=== PATIENT | female | born 1975 | race Caucasian/White ===

== ENCOUNTER 2017-12-15 19:58 | Emergency (ER) | payer OTHER ==
--- NOTE | 2017-12-15 20:49 | EDM.PDOC ---
ED HPI GENERAL MEDICAL PROBLEM - General Chief Complaint: Lower Extremity Injury/Pain Stated Complaint: RT ANKLE INJURY Time Seen by Provider: 12/15/17 20:35 Source of Information: Reports: Patient, RN History Limitations: Reports: No Limitations - History of Present Illness INITIAL COMMENTS - FREE TEXT/NARRATIVE: 42 yo female twisted R ankle this morning. Later not able to bear weight. Pain is not bad when sitting. No self tx. Onset: Today Onset Date: 12/15/17 Onset Time: 10:00 Duration: Hour(s):, Constant Location: Reports: Lower Extremity, Right Quality: Reports: Ache (at rest), Sharp (with weight bearing) Severity: Moderate Improves with: Reports: Rest Worsens with: Reports: Movement Context: Reports: Trauma Associated Symptoms: Reports: No Other Symptoms Treatments [employer]: Reports: Other (see below) (none) - Related Data Allergies Allergy/AdvReac Type Severity Reaction Status Date / Time No Known Allergies Allergy Verified 12/15/17 20:29 Home Meds: Home Meds Cyanocobalamin/FA/Pyridoxine [Folbic] 12/15/17 [History] Propranolol [Inderal LA] 12/15/17 [History] buPROPion [buPROPion XL] 12/15/17 [History] clonazePAM [Clonazepam] 12/15/17 [History] Past Medical History Cardiovascular History: Reports: Hypertension - Past Surgical History Female Surgical History: Reports: Section Social & Family History - Tobacco Use Smoking Status *Q: Never Smoker Review of Systems - Review of Systems Review Of Systems: See Below Constitutional: Reports: No Symptoms Musculoskeletal: Reports: Joint Pain (R ankle) Skin: Reports: No Symptoms Neurological: Reports: No Symptoms ED EXAM, GENERAL - Physical Exam Exam: See Below Exam Limited By: No Limitations General Appearance: Alert, WD/WN, No Apparent Distress Eye Exam: Bilateral Eye: Normal Inspection Nose: Normal Inspection, Normal Mucosa, No Blood Throat/Mouth: Normal Inspection, Normal Lips, Normal Oropharynx, Normal Voice, No Airway Compromise Head: Atraumatic, Normocephalic Neck: Normal Inspection, Supple Respiratory/Chest: No Respiratory Distress, No Accessory Muscle Use Cardiovascular: Regular Rate, Rhythm Extremities: Pedal Edema (R lateral ankle), Other (good ROM, minimal pain with palpation. No lateral foot or prox fibular pain. ). No: Limited Range of Motion Neurological: Alert, Oriented, CN II-XII Intact, Normal Cognition, No Motor/ Sensory Deficits Psychiatric: Normal Affect, Normal Mood Skin Exam: Warm, Dry, Intact, Normal Color, No Rash Course - Vital Signs Last Recorded V/S: Last Vital Signs Temp 36.9 C 12/15/17 20:34 Pulse 68 12/15/17 20:34 Resp 16 12/15/17 20:34 BP 135/88 12/15/17 20:34 Pulse Ox 97 12/15/17 20:34 - Orders/Labs/Meds Orders: Active Orders 24 hr Category Date Time Status Ankle Min 3V Rt [CR] Stat Exams 12/15/17 20:43 Ordered - Radiology Interpretation Free Text/Narrative:: R ankle X-ray-neg KEIKO applied, 4 inch Departure - Departure Time of Disposition: 21:28 Disposition: Home, Self-Care 01 Condition: Fair Clinical Impression: Ankle sprain Qualifiers: Encounter type: initial encounter Involved ligament of ankle: unspecified ligament Laterality: right Qualified Code(s): S93.401A - Sprain of unspecified ligament of right ankle, initial encounter - Discharge Information Referrals: PCP,None [Primary Care Provider] - Forms: ED Department Discharge - My Orders Last 24 Hours: My Active Orders 12/15/17 20:43 Ankle Min 3V Rt [CR] Stat - Assessment/Plan Last 24 Hours: My Active Orders 12/15/17 20:43 Ankle Min 3V Rt [CR] Stat
--- NOTE | 2017-12-17 09:12 | CR ---
Ankle Min 3V Rt CLINICAL HISTORY: Injury FINDINGS: The soft tissues are swollen, most prominent over the lateral malleolus. There is a small s econdary ossification center off the medial malleolus. There is a tiny ossific density off of the fib ular tip. This could also represent a secondary ossification center. A tiny avulsion fracture is not excluded. Impression: Soft tissue swelling Possible tiny avulsion fracture of the distal fibula versus secondary ossification center
== END 2017-12-15 22:08 | disposition home or self-care (01) ==
LOC: JP.ED 19:58
DX: S93.401A Sprain of unspecified ligament of right ankle, initial encounter (principal); I10 Essential (primary) hypertension; X50.1XXA Overexertion from prolonged static or awkward postures, initial encounter; Z79.899 Other long term (current) drug therapy
CPT/HCPCS: 73610-26-RT; 73610-RT; 99284